=== PATIENT | male | born 1945 | race Caucasian/White ===

== ENCOUNTER → 2020-10-20 | Outpatient (CLI) | payer BC ==
--- NOTE | 2020-10-20 21:29 | REP ---
INDICATION: R05 COUGH COMPARISON: None. TECHNIQUE: PA and lateral. FINDINGS: A right hilar mass cannot be excluded along with adjacent atelectasis and interstitial changes. Remainder of lung escalera are well aerated and clear. No effusion. No pneumothorax. Cardiac silhouette is normal. Skeletal structures intact. IMPRESSION: Suspicious opacity in the right hilum suggesting mass with adjacent atelectasis. Chest CT with contrast is recommended for further investigation. <Electronically signed by Elton Joseph > 10/20/20 [id number]
== END ==
LOC: M WUC 11:37
PROVIDERS: ATTEND Physician Assistant Medical
DX: R05 Cough (principal); R91.8 Other nonspecific abnormal finding of lung field

== ENCOUNTER → 2020-10-26 | Outpatient (CLI) | payer BC ==
[2020-10-26 16:55] LABS: CREATININE FOR GFR 0.95 MG/DL (0.70-1.30); GLOMERULAR FILTRATION RATE > 60.0 (>42)
[2020-10-27 07:05] LABS: BLOOD UREA NITROGEN 15 MG/DL (7-18)
== END ==
LOC: M WUC 10:27
PROVIDERS: ATTEND Physician Assistant
DX: R05 Cough (principal)

== ENCOUNTER → 2020-10-29 | Outpatient (CLI) | payer BC ==
[~2020-10-29] MED LIST: ISOVUE-370 76% 100ML VIAL As Ordered ONE
--- NOTE | 2020-10-30 08:37 | REP ---
INDICATION: OPACITY RT LUNG ABN IMAGING COMPARISON: None TECHNIQUE: Axial contrast enhanced images from the thoracic inlet to the upper abdomen with coronal and sagittal reformations using 75 ml Isovue 370 intravenous contrast material. This CT examination was performed using the following dose reduction techniques: Automated exposure control, adjustment of mA and/or kv according to the patient's size, and use of iterative reconstruction technique. FINDINGS: Large pathologic conglomerate lymph node complex and or pulmonary mass at the right hilum measures greater than 5.3 cm diameter and demonstrates elements of rim enhancement with suspected central necrosis. This lesion completely fills the right lower lobe and right middle lobe bronchi. Mediastinal/subcarinal heterogeneous enhancing pathologic lymph nodes are also identified. There is a suspicious mass with cavitary component in the posterior subpleural apical segment right lower lobe measuring 3.5 cm diameter along with smaller adjacent 13 mm mass and few small scattered nonspecific pulmonary nodules primarily identified in the right upper lobe and left lower lobe. No effusion. No pneumothorax. Further evaluation of the mediastinum demonstrates atherosclerotic changes to the thoracic aorta and coronary arteries without aortic aneurysm or dissection. No cardiomegaly or pericardial effusion. IMPRESSION: 1. 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 Significant associated mediastinal and right hilar adenopathy as described above which envelops the hilar vasculature and fills the right lower lobe and right middle lobe bronchi extending into the respective segments. <Electronically signed by Elton Joseph > 10/30/20 [id number]
== END ==
LOC: M RAD 15:57
PROVIDERS: ATTEND Physician Assistant
DX: R91.8 Other nonspecific abnormal finding of lung field (principal); R05 Cough
CPT/HCPCS: 71260; Q9967